=== PATIENT | male | born 1965 | race Caucasian/White ===

== ENCOUNTER 2019-01-10 18:00 | Emergency (ER) | payer SELFPAY ==
[2019-01-10] MEDS ORDERED: Sodium Chloride 0.9% 1,000 ML IV ONE (18:02)
[2019-01-10] MEDS ORDERED: Ondansetron 4 MG/2 ML SDV IVPUSH ONE (18:02)
--- NOTE | 2019-01-10 18:09 | EDM.PDOC ---
ED HPI GENERAL MEDICAL PROBLEM - General Stated Complaint: POSSIBLE KIDNEY STONES, SEVERE PAIN Time Seen by Provider: 01/10/19 18:09 Source of Information: Reports: Patient History Limitations: Reports: No Limitations - History of Present Illness INITIAL COMMENTS - FREE TEXT/NARRATIVE: HISTORY AND PHYSICAL: History of present illness: Patient is a 53-year-old male who presents to the emergency room with complaints of left flank pain that radiates around to the left abdomen and into the groin. He states this started approximately an hour and a half prior to arrival. He does have a history of kidney stones and pain/discomfort is similar. Complaining of nausea without any vomiting. Patient denies any fever, chills, headache, change in vision, syncope or near syncope. Denies any chest pain, shortness of breath or cough. Denies any vomiting, diarrhea, constipation or dysuria. Has not noted any blood in urine or stool. Patient had previously been eating and drinking appropriately. Review of systems: As per history of present illness and below otherwise all systems reviewed and negative. Past medical history: As per history of present illness and as reviewed below otherwise noncontributory. Surgical history: As per history of present illness and as reviewed below otherwise noncontributory. Social history: See social history for further information Family history: As per history of present illness and as reviewed below otherwise noncontributory. Physical exam: General: Well-developed and well-nourished 53-year-old male. Alert and oriented. Nontoxic appearing and in no acute distress. HEENT: Atraumatic, normocephalic, pupils equal and reactive bilaterally, negative for conjunctival pallor or scleral icterus, mucous membranes moist, trachea midline. No drooling or trismus noted. No meningeal signs. No hot potato voice noted. Lungs: Clear to auscultation, breath sounds equal bilaterally, chest nontender. Heart: S1S2, regular rate and rhythm without overt murmur Abdomen: Soft, nondistended, left mid abdomen tenderness. Negative for masses or hepatosplenomegaly. Left-sided costovertebral tenderness. Skin: Intact, warm, dry. No lesions or rashes noted. Extremities: Atraumatic, moves all extremities per self without difficulty or deficits, negative for cords or calf pain. Neurovascular unremarkable. Neuro: Awake, alert, oriented. Cranial nerves II through XII unremarkable. Cerebellum unremarkable. Motor and sensory unremarkable throughout. Exam nonfocal. Notes: CT of the abdomen/pelvis shows a 5 mm obstructing calculus left ureterovesical junction with moderate left-sided hydronephrosis and hydroureter. Several small nonobstructing calculi both kidneys. Normal appendix. Diverticulosis sigmoid colon without any CT evidence of diverticulitis or abscess. Lab work is unremarkable. Dr. Soto was consult did on this patient. He will see the patient next week, likely Friday. This information was shared with the patient and at bedside. Prescription for Flomax and [place]. Supportive care measures were reviewed and discussed. Voices understanding and is agreeable to plan of care. Denies any further questions or concerns at this time. Diagnostics: CBC, CMP, UA, CT abdomen and pelvis, lipase Therapeutics: IV fluid, Zofran, Toradol, morphine, Flomax Prescription: [place] (#30) Flomax Impression: Kidney stone, left Plan: 1. Increase your oral fluids. Strain your urine as we discussed. 2. Take your Flomax and [place] as directed This medication does cause drowsiness a do not take it will driving her needing to be functioning outside of the house. Otherwise he may take Tylenol and/or ibuprofen as needed. 3. Please call Dr. Boles on Friday to set up an appointment. He said he will likely see you in his office on Friday. Definitive disposition and diagnosis as appropriate pending reevaluation and review of above. Left Flank Pain Score (Numeric/FACES): 8 - Related Data Allergies Allergy/AdvReac Type Severity Reaction Status Date / Time No Known Allergies Allergy Verified 01/10/19 18:11 Home Meds: Home Meds . [No Known Home Meds] 01/10/19 [History] ED ROS GENERAL - Review of Systems Review Of Systems: ROS reveals no pertinent complaints other than HPI. ED EXAM, RENAL/ - Physical Exam Exam: See Below (See dictation) Course - Vital Signs Last Recorded V/S: Last Vital Signs Temp 96.8 F 01/10/19 18:06 Pulse 87 01/10/19 18:06 Resp BP 135/108 H 01/10/19 18:06 Pulse Ox 100 01/10/19 18:06 - Orders/Labs/Meds Orders: Active Orders 24 hr Category Date Time Status Abdomen Pelvis wo Cont [CT] Stat Exams 01/10/19 18:14 Taken Labs: Laboratory Tests 01/10/19 01/10/19 01/10/19 Range/Units 18:02 18:15 18:15 WBC 11.82 H (4.0-11.0) K/uL RBC 4.41 L (4.50-5.90) M/uL Hgb 13.5 (13.0-17.0) g/dL Hct 40.4 (38.0-50.0) % MCV 91.6 (80.0-98.0) fL MCH 30.6 (27.0-32.0) pg MCHC 33.4 (31.0-37.0) g/dL RDW Std Deviation 48.9 (28.0-62.0) fl RDW Coeff of [place] 14 (11.0-15.0) % Plt Count 320 (150-400) K/uL MPV 9.80 (7.40-12.00) fL Neut % (Auto) 58.0 (48.0-80.0) % Lymph % (Auto) 30.1 (16.0-40.0) % [place] % (Auto) 9.1 (0.0-15.0) % Eos % (Auto) 2.5 (0.0-7.0) % Baso % (Auto) 0.3 (0.0-1.5) % Neut # (Auto) 6.9 H (1.4-5.7) K/uL Lymph # (Auto) 3.6 H (0.6-2.4) K/uL [place] # (Auto) 1.1 H (0.0-0.8) K/uL Eos # (Auto) 0.3 (0.0-0.7) K/uL Baso # (Auto) 0.0 (0.0-0.1) K/uL Nucleated RBC % 0.0 /100WBC Nucleated RBCs # 0 K/uL Sodium 138 (136-148) mmol/L Potassium 4.2 (3.5-5.1) mmol/L Chloride 104 (98-107) mmol/L Carbon Dioxide 25.7 (21.0-32.0) mmol/L BUN 24 H (7.0-18.0) mg/dL Creatinine 1.3 (0.8-1.3) mg/dL Est Cr Clr Drug Dosing 74.65 mL/min Estimated GFR (MDRD) 57.3 ml/min Glucose 136 H (74-106) mg/dL Calcium 9.5 (8.5-10.1) mg/dL Total Bilirubin 0.2 (0.2-1.0) mg/dL AST 31 (15-37) IU/L ALT 33 (14-63) IU/L Alkaline Phosphatase 96 (46-116) U/L Total Protein 7.8 (6.4-8.2) g/dL Albumin 3.7 (3.4-5.0) g/dL Globulin 4.1 H (2.6-4.0) g/dL Albumin/Globulin Ratio 0.9 (0.9-1.6) Lipase (73-393) U/L Urine Color YELLOW Urine Appearance HAZY Urine pH 6.0 (5.0-8.0) Ur Specific [place] 1.025 (1.001-1.035) Urine Protein NEGATIVE (NEGATIVE) mg/dL Urine Glucose (UA) NEGATIVE (NEGATIVE) mg/dL Urine Ketones NEGATIVE (NEGATIVE) mg/dL Urine Occult Blood MODERATE H (NEGATIVE) Urine Nitrite NEGATIVE (NEGATIVE) Urine Bilirubin NEGATIVE (NEGATIVE) Urine Urobilinogen 0.2 (<2.0) EU/dL Ur Leukocyte Esterase NEGATIVE (NEGATIVE) Urine RBC 1-4 (0-2/HPF) Urine WBC 0-2 (0-5/HPF) Ur Epithelial Cells FEW (NONE-FEW) Urine Bacteria FEW (NEGATIVE) 01/10/19 Range/Units 18:15 WBC (4.0-11.0) K/uL RBC (4.50-5.90) M/uL Hgb (13.0-17.0) g/dL Hct (38.0-50.0) % MCV (80.0-98.0) fL MCH (27.0-32.0) pg MCHC (31.0-37.0) g/dL RDW Std Deviation (28.0-62.0) fl RDW Coeff of [place] (11.0-15.0) % Plt Count (150-400) K/uL MPV (7.40-12.00) fL Neut % (Auto) (48.0-80.0) % Lymph % (Auto) (16.0-40.0) % [place] % (Auto) (0.0-15.0) % Eos % (Auto) (0.0-7.0) % Baso % (Auto) (0.0-1.5) % Neut # (Auto) (1.4-5.7) K/uL Lymph # (Auto) (0.6-2.4) K/uL [place] # (Auto) (0.0-0.8) K/uL Eos # (Auto) (0.0-0.7) K/uL Baso # (Auto) (0.0-0.1) K/uL Nucleated RBC % /100WBC Nucleated RBCs # K/uL Sodium (136-148) mmol/L Potassium (3.5-5.1) mmol/L Chloride (98-107) mmol/L Carbon Dioxide (21.0-32.0) mmol/L BUN (7.0-18.0) mg/dL Creatinine (0.8-1.3) mg/dL Est Cr Clr Drug Dosing mL/min Estimated GFR (MDRD) ml/min Glucose (74-106) mg/dL Calcium (8.5-10.1) mg/dL Total Bilirubin (0.2-1.0) mg/dL AST (15-37) IU/L ALT (14-63) IU/L Alkaline Phosphatase (46-116) U/L Total Protein (6.4-8.2) g/dL Albumin (3.4-5.0) g/dL Globulin (2.6-4.0) g/dL Albumin/Globulin Ratio (0.9-1.6) Lipase 131 (73-393) U/L Urine Color Urine Appearance Urine pH (5.0-8.0) Ur Specific [place] (1.001-1.035) Urine Protein (NEGATIVE) mg/dL Urine Glucose (UA) (NEGATIVE) mg/dL Urine Ketones (NEGATIVE) mg/dL Urine Occult Blood (NEGATIVE) Urine Nitrite (NEGATIVE) Urine Bilirubin (NEGATIVE) Urine Urobilinogen (<2.0) EU/dL Ur Leukocyte Esterase (NEGATIVE) Urine RBC (0-2/HPF) Urine WBC (0-5/HPF) Ur Epithelial Cells (NONE-FEW) Urine Bacteria (NEGATIVE) Meds: Medications Discontinued Medications Generic Name Dose Route Start Last Admin Trade Name Anibal PRN Reason Stop Dose Admin Sodium Chloride 1,000 mls @ 999 mls/hr 01/10/19 18:02 01/10/19 18:21 Normal Saline IV 01/10/19 19:02 999 mls/hr STAT ONE Administration Ketorolac Tromethamine 30 mg 01/10/19 18:15 01/10/19 18:21 Toradol IVPUSH 01/10/19 18:16 30 mg ONETIME ONE Administration Morphine Sulfate 4 mg 01/10/19 18:16 01/10/19 18:34 Morphine IVPUSH 01/10/19 18:17 4 mg ONETIME ONE Administration Ondansetron HCl 4 mg 01/10/19 18:02 01/10/19 18:22 Zofran IVPUSH 01/10/19 18:03 4 mg ONETIME ONE Administration Tamsulosin HCl 0.4 mg 01/10/19 18:15 01/10/19 18:24 Flomax PO 01/10/19 18:16 0.4 mg ONETIME ONE Administration Departure - Departure Time of Disposition: 19:17 Disposition: Home, Self-Care 01 Clinical Impression: Kidney stone - Discharge Information Instructions: Kidney Stones, [id number] Referrals: PCP,None [Primary Care Provider] - Additional Instructions: The following information is given to patients seen in the emergency department who are being discharged to home. This information is to outline your options for follow-up care. We provide all patients seen in our emergency department with a follow-up referral. The need for follow-up, as well as the timing and circumstances, are variable depending upon the specifics of your emergency department visit. If you don't have a primary care physician on staff, we will provide you with a referral. We always advise you to contact your personal physician following an emergency department visit to inform them of the circumstance of the visit and for follow-up with them and/or the need for any referrals to a consulting specialist. The emergency department will also refer you to a specialist when appropriate. This referral assures that you have the opportunity for follow-up care with a specialist. All of these measure are taken in an effort to provide you with optimal care, which includes your follow-up. Under all circumstances we always encourage you to contact your private physician who remains a resource for coordinating your care. When calling for follow-up care, please make the office aware that this follow-up is from your recent emergency room visit. If for any reason you are refused follow-up, please contact the [facility] Emergency Department at and asked to speak to the emergency department charge nurse. [facility] Primary [facility] [address] [place] [id number] [facility] Specialty Care - Urology [address] [place] [id number] 1. Increase your oral fluids. Strain your urine as we discussed. 2. Take your Flomax and [place] as directed This medication does cause drowsiness a do not take it will driving her needing to be functioning outside of the house. Otherwise he may take Tylenol and/or ibuprofen as needed. 3. Please call Dr. Boles on Friday to set up an appointment. He said he will likely see you in his office on Friday. - My Orders Last 24 Hours: My Active Orders 01/10/19 18:14 Abdomen Pelvis wo Cont [CT] Stat - Assessment/Plan Last 24 Hours: My Active Orders 01/10/19 18:14 Abdomen Pelvis wo Cont [CT] Stat
[2019-01-10] MEDS ORDERED: Ketorolac 30 MG/ML SDV IVPUSH ONE (18:15)
[2019-01-10] MEDS ORDERED: Tamsulosin 0.4 MG Cap.ER PO ONE (18:15)
[2019-01-10] MEDS ORDERED: Morphine 4 MG/ML Syringe IVPUSH ONE (18:16)
--- NOTE | 2019-01-10 19:14 | CT ---
INDICATION: Left flank pain; history of kidney stones. COMPARISON: CT abdomen and pelvis 01/07/2012. TECHNIQUE: CT abdomen and pelvis without intravenous or oral contrast; coronal and sagittal reformats. FINDINGS: A 5 mm obstructing calculus at the left ureterovesical junction with moderate left-sided hydronephrosis and hydroureter. Several nonobstructing calculi in both kidneys. No abnormal intra pulmonary nodular densities through the lung bases. No evidence of pleural effusion. Normal size cardiac silhouette without any evidence of pericardial effusion. No focal hepatic or splenic pathology. No pancreatic pathology. Gallbladder is unremarkable. No adrenal pathology. No retroperitoneal lymphadenopathy. No evidence of abdominal or pelvic ascites. No pneumoperitoneum or intestinal obstruction. Diverticulosis sigmoid colon without any CT evidence of diverticulitis or abscess. Normal appendix. IMPRESSION: 1. A 5 mm obstructing calculus left ureterovesical junction with moderate left-sided hydronephrosis and hydroureter. 2. Several small nonobstructing calculi both kidneys. 3. Normal appendix. 4. Diverticulosis sigmoid colon without any CT evidence of diverticulitis or abscess. Please note that all CT scans at this facility use dose modulation, iterative reconstruction, and/or weight-based dosing when appropriate to reduce radiation dose to as low as reasonably achievable. Dictated by Karma Oquendo MD @ Jan 10 2019 7:08PM Signed by Dr. Karma Oquendo @ Jan 10 2019 7:12PM
== END 2019-01-10 19:50 | disposition home or self-care (01) ==
LOC: MW.ED 18:00
DX: N13.2 Hydronephrosis with renal and ureteral calculous obstruction (principal)
CPT/HCPCS: 74176; 80053; 81001; 83690; 85025; 96361; 96374; 96375; 99284; A9270; J1885; J2270; J2405; J7040

== ENCOUNTER 2021-11-27 06:16 | Emergency (ER) | payer SELFPAY ==
[2021-11-27] MEDS ORDERED: Sodium Chloride 0.9% 1,000 ML IV ONE (06:28)
[2021-11-27] MEDS ORDERED: Ondansetron 4 MG/2 ML SDV IVPUSH ONE (06:38)
[2021-11-27] MEDS ORDERED: Ketorolac 30 MG/ML SDV IVPUSH ONE (06:38)
[2021-11-27] MEDS ORDERED: Morphine 4 MG/ML VIAL IVPUSH ONE (06:38)
[2021-11-27 07:11] LABS: POTASSIUM,K 3.8 mmol/L (3.5-5.1)
== END 2021-11-27 08:26 | disposition home or self-care (01) ==
LOC: MW.ED 06:16
DX: N23 Unspecified renal colic (principal)
CPT/HCPCS: 36415; 74176; 80053; 81001; 85025; 96374; 96375; 99284; J1885; J2270; J2405; J7030

== ENCOUNTER 2023-10-08 08:57 | Day surgery (SDC) | payer BC ==
[~2023-10-08 08:57] MED LIST: Acetaminophen 1,000 MG in Premix Bag 1 BAG IV SCH; Albuterol 0.083% 2.5 MG/3 ML Neb Soln NEB PRN; HYDROmorphone 1 MG/ML Syringe IVPUSH PRN; Metoclopramide 10 MG/2 ML SDV IVPUSH PRN; Morphine 2 MG/ML SYRINGE IVPUSH PRN; Naloxone 0.4 MG/ML SDV IVPUSH PRN; Ondansetron 4 MG/2 ML SDV IVPUSH PRN; ceFAZolin 2 GM in Sodium Chloride 0.9% 50 ML IV ONE; droPERidol 5 MG/2 ML SDV IVPUSH PRN; fentaNYL 50 MCG/ML SDV IVPUSH PRN
[2023-10-08] MEDS: Lactated Ringers 1,000 ML IV SCH (09:37)
[2023-10-08] MEDS ORDERED: EPINEPHrine 1 MG/1 ML Amp ONE (09:41)
[2023-10-08] MEDS ORDERED: Bupivacaine 0.25% 30 ML SDV ONE (09:41)
[2023-10-08] MEDS ORDERED: Ropivacaine 0.5% 5 MG/ML 30 ML SDV ONE (09:41)
[2023-10-08] MEDS: Pregabalin 75 MG Cap PO SCH (10:12)
[2023-10-08] MEDS ORDERED: Bupivacaine 0.5% 30 ML SDV ONE (10:21)
[2023-10-08] MEDS ORDERED: Ketorolac 30 MG/ML SDV ONE (10:27)
[2023-10-08] MEDS ORDERED: Dexamethasone 4 MG/ML 5 ML MDV ONE (10:27)
[2023-10-08] MEDS ORDERED: Lidocaine 2% 5 ML SDV ONE (10:27)
[2023-10-08] MEDS ORDERED: Rocuronium Bromide 50 MG/5 ML Syringe ONE (10:27)
[2023-10-08] MEDS ORDERED: Sugammadex Sodium 200 MG/2 ML VIAL IV ONE (10:27)
[2023-10-08] MEDS ORDERED: Ondansetron 4 MG/2 ML SDV ONE (10:27)
[2023-10-08] MEDS ORDERED: fentaNYL 100 MCG/2 ML SDV ONE ×2 (10:28→11:44)
[2023-10-08] MEDS ORDERED: Propofol 200 MG/20 ML SDV ONE (10:29)
[2023-10-08] MEDS ORDERED: ceFAZolin 2 GM Vial ONE (10:29)
[2023-10-08] MEDS ORDERED: Phenylephrine HCl 0.5 MG/5 ML AMP ONE (11:35)
[2023-10-08] MEDS ORDERED: Ketamine 500 mg/10 ML MDV ONE (11:44)
== END 2023-10-08 16:00 | disposition home or self-care (01) ==
LOC: MW.SDS 08:57
PROVIDERS: ATTEND Surgery
DX: K40.20 Bilateral inguinal hernia, without obstruction or gangrene, not specified as recurrent (principal); D17.6 Benign lipomatous neoplasm of spermatic cord; R13.10 Dysphagia, unspecified
CPT/HCPCS: 49650; A9270; J0131; J0171; J0665; J0690; J1100; J1885; J2371; J2405; J2704; J2795; J3010; J3490; J7120; C1781

== ENCOUNTER 2024-03-28 14:27 | Emergency (ER) | payer SELFPAY ==
[2024-03-28] MEDS ORDERED: Sodium Chloride 0.9% 20 ML SDV IV PRN (15:02)
[2024-03-28] MEDS ORDERED: Sodium Chloride 0.9% 2.5 ML Syringe FLUSH PRN (15:02)
[2024-03-28] MEDS ORDERED: Sodium Chloride 0.9% 10 ML Syringe FLUSH PRN (15:02)
[2024-03-28] MEDS: Sodium Chloride 0.9% 1,000 ML IV ONE (15:36)
[2024-03-28 15:38] LABS: BASOPHILS ABSOLUTE AUTO 0.02 K/uL (0.00-0.20); BASOPHILS PERCENT AUTO 0.2 % (0.0-1.0); EOSINOPHILS PERCENT AUTO 2.6 % (0.0-6.0); HEMATOCRIT 29.9 % (42.0-52.0); HEMOGLOBIN 10.2 g/dL (14.0-18.0); IMMATURE GRAN ABSOLUTE AUTO 0.05 K/uL (0.00-0.05); IMMATURE GRAN PERCENT AUTO 0.4 % (0.0-0.4); LYMPHOCYTES ABSOLUTE AUTO 2.27 K/uL (1.00-4.80); LYMPHOCYTES PERCENT AUTO 19.6 % (24.0-44.0); MEAN CORPUSCULAR HEMOGLOBIN 30.2 pg (28.0-32.0); MEAN CORPUSCULAR HGB CONC 34.1 g/dL (32.0-36.0); MEAN CORPUSCULAR VOLUME 88.5 fL (83.0-99.0); MEAN PLATELET VOLUME 8.6 fL (9.4-12.4); MONOCYTES ABSOLUTE AUTO 0.84 K/uL (0.00-0.80); MONOCYTES PERCENT AUTO 7.2 % (0.0-8.0); NEUTROPHILS ABSOLUTE AUTO 8.12 K/uL (1.80-7.70); PLATELET COUNT,PLT 374 K/uL (150-400); RED BLOOD CELL COUNT 3.38 M/uL (4.52-5.90)
[2024-03-28 15:49] LABS: INR 0.97 (0.86-1.11)
[2024-03-28 16:00] LABS: ALBUMIN 3.3 g/dL (3.4-5.0); BILIRUBIN TOTAL 0.3 mg/dL (0.2-1.0); CALCIUM 9.3 mg/dL (8.5-10.1); CARBON DIOXIDE,CO2 27.5 mmol/L (21.0-32.0); CREATININE 1.3 mg/dL (0.8-1.3); EST CRCL DRUG DOSING (CG) 70.26 mL/min; PROTEIN TOTAL,TP 7.2 g/dL (6.4-8.2)
[2024-03-28 16:13] LABS: POTASSIUM,K 4.2 mmol/L (3.5-5.1)
[2024-03-28 16:14] LABS: A/G RATIO 0.9 (0.9-1.6)
== END 2024-03-28 19:51 | disposition home or self-care (01) ==
LOC: MW.ED 14:27
DX: R13.10 Dysphagia, unspecified (principal); Z98.890 Other specified postprocedural states; Z87.891 Personal history of nicotine dependence
CPT/HCPCS: 36415; 74177; 80053; 83690; 85025; 85610; 96360; 99284; J7030; 99283